=== PATIENT | male | born 1960 | race Caucasian/White ===

== ENCOUNTER 2018-02-16 08:19 | Emergency (ER) | payer OTHER ==
[2018-02-16 08:33] VITALS: BP 140/79
--- NOTE | 2018-02-16 09:02 | UC ---
Respiratory Complaint HPI - HPI Summary HPI Summary: The patient is a 57-year-old male with greater than a week history of sinus pressure and pain postnasal drip as well as cough wheezing and chest tightness. He denies any fever or chills or chest pain ,denies feeling short of breath. He has felt fatigued and feels like he has low energy. He denies any nausea vomiting or diarrhea. He has a remote history of smoking. 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 - History of Current Complaint Chief Complaint: UCRespiratory Stated Complaint: COUGH SINUS ISSUE Time Seen by Provider: 02/16/18 08:32 Hx Obtained From: Patient Onset/Duration: Gradual Onset, Lasting Days Timing: Constant Severity Initially: Mild Severity Currently: Moderate Pain Intensity: 5 Pain Scale Used: 0-10 Numeric Character: Cough: Productive Aggravating Factors: Deep Breaths Alleviating Factors: Nothing Associated Signs And Symptoms: Positive: Wheezing, URI, Nasal Congestion, Sinus Discomfort - Allergies/Home Medications Allergies/Adverse Reactions: Allergies Allergy/AdvReac Type Severity Reaction Status Date / Time No Known Allergies Allergy Verified 12/11/15 10:26 Home Medications: Home Medications Menthol [Clark] 3.2 mg MM Q1HR PRN 02/16/18 [History Confirmed 02/16/18] PMH/Surg Hx/FS Hx/Imm Hx Previously Healthy: Yes Other History Of: Negative For: Anticoagulant Therapy - Surgical History Surgical History: Yes Surgery Procedure, Year, and Place: some dental extractions - Family History Known Family History: Positive: Hypertension - Social History Alcohol Use: Daily Alcohol Amount: a few beers a day, sometimes more Substance Use Type: None Smoking Status (MU): Former Smoker Type: Cigarettes When Did the Patient Quit Smoking/Using Tobacco: quit 23 years ago Review of Systems All Other Systems Reviewed And Are Negative: Yes Constitutional: Positive: Fatigue Skin: Positive: Negative Eyes: Positive: Negative ENT: Positive: Nasal Discharge, Sinus Congestion, Sinus Pain/Tenderness Respiratory: Positive: Cough Cardiovascular: Positive: Negative Gastrointestinal: Positive: Negative Genitourinary: Positive: Negative Motor: Positive: Negative Neurovascular: Positive: Negative Musculoskeletal: Positive: Negative Neurological: Positive: Negative Psychological: Positive: Negative Physical Exam Triage Information Reviewed: Yes Appearance: Well-Appearing, No Pain Distress, Well-Nourished Vital Signs: Initial Vital Signs Temp 97.8 F 02/16/18 08:27 Pulse 86 02/16/18 08:27 Resp 22 02/16/18 08:27 BP 140/79 02/16/18 08:27 Pulse Ox 95 02/16/18 08:27 Vital Signs Reviewed: Yes Eyes: Positive: Conjunctiva Clear ENT: Positive: Nasal congestion, Nasal drainage, TMs normal, Sinus tenderness, Uvula midline. Negative: Hearing grossly normal, Tonsillar swelling, Tonsillar exudate, Trismus, Muffled voice, Hoarse voice Dental Exam: Normal Neck: Positive: Supple, Nontender, No Lymphadenopathy Respiratory: Positive: No respiratory distress, No accessory muscle use, Other: - bronchospastic cough. wheezing with forced expiration Cardiovascular: Positive: RRR Musculoskeletal: Positive: ROM Intact, No Edema Neurological Exam: Normal Psychological Exam: Normal UC Diagnostic Evaluation - Laboratory O2 Sat by Pulse Oximetry: 95 - low normal/not hypoxic Respiratory Course/Dx - Differential Dx/Diagnosis Provider Diagnosis: Bronchitis, Bronchospasm, Elevated blood pressure reading, Sinusitis Discharge - Sign-Out/Discharge Documenting (check all that apply): Patient Departure All imaging exams completed and their final reports reviewed: No Studies - Discharge Plan Condition: Stable Disposition: HOME Prescriptions: Amoxicillin PO (*) [Amoxicillin 875 MG (*)] 875 mg PO BID #14 tab Fluticasone NASAL SPRAY 50MCG* [Flonase NASAL SPRAY 50MCG*] 2 spray BOTH NARES BID #1 btl predniSONE [Deltasone 20 MG TAB] 40 mg PO DAILY #10 tab Patient Education Materials: Sinusitis (ED), Acute Bronchitis (ED), How to Use a Metered-Dose Inhaler and a Spacer (ED) Forms: *Work Release Referrals: [facility] [place] [facility]FERRAL [Outside] - As Soon As Possible (BP a little high...should be recheced in 2-12 weeks) Additional Instructions: your BP was a little high here and needs to be followed recheck in 5 -7 days if not better recheck sooner for new or worsening symptoms - Billing Disposition and Condition Condition: STABLE Disposition: Home
[2018-02-16] MEDS ORDERED: Albuterol HFA INHALER* 8 gm MDI INH ONE (09:03)
[2018-02-16] MEDS ORDERED: predniSONE TAB* 20 MG PO ONE (09:04)
== END 2018-02-16 09:20 | disposition home or self-care (01) ==
LOC: UCEAST 08:19
DX: Z87.891 Personal history of nicotine dependence (principal); J20.9 Acute bronchitis, unspecified; R03.0 Elevated blood-pressure reading, without diagnosis of hypertension; J32.9 Chronic sinusitis, unspecified
CPT/HCPCS: 99212; A9270-GY; G0463; J7512